=== PATIENT | male | born 1985 | race Caucasian/White ===

== ENCOUNTER 2020-10-22 10:10 | Emergency (ER) | payer OTHER ==
--- NOTE | 2020-10-22 10:23 | EDM.PDOC ---
ED HPI GENERAL MEDICAL PROBLEM - General Chief Complaint: General Stated Complaint: R SIDE OF FACE NUMB Time Seen by Provider: 10/22/20 10:23 - History of Present Illness INITIAL COMMENTS - FREE TEXT/NARRATIVE: 35-year-old male presents the emergency room with right facial weakness. Patient thinks everything was okay when he went to bed last night however this morning he awoke and noticed that his right eye was watery. He then looked in the mirror and saw that his muscles were not working right. Patient denies any recent illness he has no pain he has no unusual sensation under his skin and sensation in his skin seems to be intact. This involves only the right side of the face. The patient has not had episodes like this in the past however his father had Cota's palsy roughly 40 years ago. - Related Data Allergies Allergy/AdvReac Type Severity Reaction Status Date / Time No Known Allergies Allergy Verified 10/22/20 10:17 Home Meds: Home Meds predniSONE [Prednisone] 80 mg PO ASDIRECTED #28 tablet 10/22/20 [Rx] valACYclovir HCl [valACYclovir] 1,000 mg PO TID #21 tablet 10/22/20 [Rx] Past Medical History - Past Health History Medical/Surgical History: Denies Medical/Surgical History Social & Family History - Tobacco Use Tobacco Use Status *Q: Never Tobacco User Second Hand Smoke Exposure: No - Caffeine Use Caffeine Use: Reports: Soda - Recreational Drug Use Recreational Drug Use: No ED ROS GENERAL - Review of Systems Review Of Systems: See Below Constitutional: Reports: No Symptoms HEENT: Reports: Other (Facial movements are diminished on the right side) Respiratory: Reports: No Symptoms Cardiovascular: Reports: No Symptoms Endocrine: Reports: No Symptoms GI/Abdominal: Reports: No Symptoms : Reports: No Symptoms Musculoskeletal: Reports: No Symptoms Skin: Reports: No Symptoms ED EXAM, GENERAL - Physical Exam Exam: See Below Exam Limited By: No Limitations General Appearance: Alert, No Apparent Distress Eye Exam: Bilateral Eye: Normal Inspection, Other (Eyelid function is intact on the right, albeit a little weaker than on the left) Ears: Normal External Exam, Normal Canal, Hearing Grossly Normal, Normal TMs Nose: Normal Inspection, Normal Mucosa, No Blood Throat/Mouth: Normal Inspection, Normal Lips, Normal Teeth, Normal Gums, Normal Oropharynx, Normal Voice, No Airway Compromise Head: Atraumatic, Normocephalic, Other (He has facial weakness on the right side from the level of the eye on down he can wrinkle the skin on his forehead all muscles are functional but to a lesser degree than on the left.) Neck: Normal Inspection, Supple, Non-Tender, Full Range of Motion. 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 The patient understands that he needs to go straight to the pharmacy to get this filled. We discussed that the patient needs to return immediately if he can no longer close his eye completely or if his eye tries to open up on its own. It is recommended that he use eye moisturizing drops and he will need to patch his eye if the weakness worsens to the point of not being able to control his eyelids Departure - Departure Time of Disposition: 10:51 Disposition: Home, Self-Care 01 Clinical Impression: Cota's palsy - Discharge Information Referrals: PCP,None [Primary Care Provider] - Forms: ED Department Discharge Additional Instructions: Return to the emergency room with any questions problems or worsening symptoms. Return immediately if you are unable to control or completely close your eye. If your eye tries to wander open on its own you need to come in. Follow-up with the hospital clinic early this next week for recheck and to est ablish this condition could go on for weeks and needs to be followed closely. You have been started on an antiviral medication you take 3 times a day. You have also been started on prednisone that you should take every morning so get these filled immediately after you leave the department and take your first dose of each. Then follow the directions on the bottle the antiviral you will take 3 times daily the prednisone you will take every morning usually just before breakfast. Sepsis Event Note (ED) - Focused Exam Vital Signs: Vital Signs Temp Pulse Resp BP Pulse Ox 10/22/20 10:16 36.3 C 84 20 146/87 H 99
== END 2020-10-22 11:27 | disposition home or self-care (01) ==
LOC: JD.ED 10:10
DX: G51.0 Bell's palsy (principal)
CPT/HCPCS: 99283; 99284